=== PATIENT | female | born 1940 | race Caucasian/White ===

== ENCOUNTER 2017-01-09 05:55 | Day surgery (SDC) | payer MEDICARE, OTHER ==
[~2017-01-09 05:55] MED LIST: Dextrose 5%-0.45% NaCl 1,000 ML IV SCH; Sodium Chloride 0.9% 10 ML Syringe FLUSH PRN
[2017-01-09] MEDS ORDERED: Midazolam 1 MG/ML 2 ML SDV ONE (06:15)
[2017-01-09] MEDS ORDERED: fentaNYL 100 MCG/2 ML SDV ONE (06:15)
[2017-01-09] MEDS ORDERED: fentaNYL 100 MCG/2 ML SDV IV ONE ×3 (07:15→12:59)
[2017-01-09] MEDS ORDERED: Midazolam 1 MG/ML 2 ML SDV IV ONE ×10 (07:16→12:59)
[2017-01-09 09:45] VITALS: BP 130/55
--- NOTE | 2017-01-09 12:57 | OR ---
DATE: 01/09/2017 PROCEDURE: Total colonoscopy. INSTRUMENT USED: PCF-160 AL Olympus video colonoscope. PREMEDICATIONS: Fentanyl 100 mcg intravenous, Versed 5.5 mg intravenous. Nasal O2 cannula. The procedure was done under pulse oximetry, BP recording, and laboratory monitor. INDICATION: Screening colonoscopy examination is done for detection of any polypoid lesions and removal, endoscopic hemostasis therapy if needed. DESCRIPTION OF PROCEDURE: Initial rectal exam showed external hemorrhoidal tags. Rigid anoscopy was normal. The colonoscope was passed with ease. Numerous scattered diverticula were noted in the distal left colon along with deformity. The colon was found to be tortuous and redundant and technically a difficult exam due to the presence of adhesions related to previous the surgical procedures. There was significant amount of fecal material that had to be aspirated, some solid in consistency. The scope was passed up to the area of the cecum. Photographs were taken. No bleeding was noted from any of the visualized areas at the commencement of the examination. No vascular ectasia. No large isolated ulcerations seen. No evidence of diffuse inflammatory bowel disease in the form of friability, contact bleeding, or ulcerations. No polyp or tumor mass identified. Probing the proximal sides of folds and flexures, using adequate distention and clearing of the stool material, withdrawal of the scope was made, cecum to rectum time over 6 minutes. No bleeding was noted from any of the visualized areas at the completion of examination. IMPRESSION: 1. Diverticulosis. 2. External hemorrhoids. The patient tolerated the procedure well. [facility] /[id number]
== END 2017-01-09 09:58 | disposition home or self-care (01) ==
LOC: DL.ENDO 05:55
PROVIDERS: ATTEND Internal Medicine Gastroenterology
DX: Z12.11 Encounter for screening for malignant neoplasm of colon (principal); K57.30 Diverticulosis of large intestine without perforation or abscess without bleeding; K64.4 Residual hemorrhoidal skin tags; I10 Essential (primary) hypertension; F41.1 Generalized anxiety disorder; K21.9 Gastro-esophageal reflux disease without esophagitis
CPT/HCPCS: 45378; J2250; J3010; J7042

== ENCOUNTER 2017-06-22 05:18 | Day surgery (SDC) | payer MEDICARE, OTHER ==
[2017-06-22] MEDS ORDERED: Dextrose 5%-0.45% NaCl 1,000 ML IV SCH (06:00)
[2017-06-22] MEDS ORDERED: Sodium Chloride 0.9% 10 ML Syringe FLUSH PRN (06:00)
[2017-06-22] MEDS ORDERED: fentaNYL 100 MCG/2 ML SDV ONE (06:04)
[2017-06-22] MEDS ORDERED: Midazolam 1 MG/ML 2 ML SDV ONE (06:04)
[2017-06-22] MEDS ORDERED: fentaNYL 100 MCG/2 ML SDV IV ONE ×2 (06:25)
[2017-06-22] MEDS ORDERED: Midazolam 1 MG/ML 2 ML SDV IV ONE ×2 (06:26→06:27)
--- NOTE | 2017-06-22 07:21 | OR ---
DATE: 06/22/2017 PROCEDURE: Esophagogastroduodenoscopy and multiple pinch biopsies. INSTRUMENT USED: GIF-H180 Olympus video panendoscope. PREMEDICATIONS: Fentanyl 100 mcg intravenous, Versed 1.5 mg intravenous. Nasal O2 cannula. The procedure was done under pulse oximetry, BP recording, and vp digital marketing social media and crm. INDICATION: The patient with longstanding heartburn,abdominal pain and dyspepsia with recent high dysphagia unexplained, not responsive to medical measures. Barium esophagogram done recently reported abnormal. PROCEDURE IN DETAIL: Esophagogastroduodenoscopy is performed for detection of any active erosive lesions, malignancy also under consideration, H. pylori status to be determined, esophageal dilatations if indicated, endoscopic hemostasis therapy if needed. The scope was passed with ease. Adequate visualization of the esophagus was made proximal to distal areas. No upper esophageal lesions identified. No distal esophageal stricture. No uphill or downhill esophageal varices. No Darlin-Keith tear. No evidence of erosive esophagitis by Ingham criteria. No esophageal polyp or tumor mass identified. Z-line was seen at around 40 cm distal to the oral verge, configuration consistent with grade 1 by Zapp classification. No proximal gastric varices noted. Gastric fundus examination by retroflexion showed no polypoid lesions. Sliding hiatal hernia is noted. No gastric ulcer, malignant mass, or vascular ectasia identified. Duodenal bulb showed no ulcer. Visualized second part of the duodenum was unremarkable. Multiple pinch biopsies were taken from the gastric antrum and proximal body and sent for PyloriTek test for H. pylori; and if negative in an hour, the tissue is to be sent for histopathology. No bleeding was noted from any of the visualized areas at the completion of examination. Photographs were taken of the duodenal bulb, gastric antrum, fundus, and distal esophagus. IMPRESSION: Sliding hiatal hernia. The patient tolerated the procedure well. [facility] /[id number] PRABHAKAR
[2017-06-22 08:46] VITALS: BP 112/48
== END 2017-06-22 08:37 | disposition home or self-care (01) ==
LOC: DL.ENDO 05:18
PROVIDERS: ATTEND Internal Medicine Gastroenterology
DX: K31.819 Angiodysplasia of stomach and duodenum without bleeding (principal); K44.9 Diaphragmatic hernia without obstruction or gangrene; K21.9 Gastro-esophageal reflux disease without esophagitis; I10 Essential (primary) hypertension; E78.5 Hyperlipidemia, unspecified; F41.1 Generalized anxiety disorder; Z88.1 Allergy status to other antibiotic agents; Z88.2 Allergy status to sulfonamides; Z88.8 Allergy status to other drugs, medicaments and biological substances
CPT/HCPCS: 43239; 87077; J7042; 88305; J2250; J3010

== ENCOUNTER 2017-11-08 10:29 | Emergency (ER) | payer MEDICARE, OTHER ==
[2017-11-08 10:44] VITALS: BP 169/69
[2017-11-08] MEDS ORDERED: Bacitracin Oint 1 GM U/D Packet TOP ONE (10:45)
[2017-11-08] MEDS ORDERED: Lidocaine 1% 30 ML SDV INJECT ONE (10:45)
[2017-11-08] MEDS ORDERED: Amoxicillin/Clavulanate K 875-125 MG Tab PO ONE (11:07)
--- NOTE | 2017-11-08 12:33 | EDM.PDOC ---
Scribed by Katie Abdi 11/08/17 1232 for Harshil Lozano MD ED HPI GENERAL MEDICAL PROBLEM - General Chief Complaint: Upper Extremity Injury/Pain Stated Complaint: RT INDEX FINGER, Time Seen by Provider: 11/08/17 10:40 Source of Information: Reports: Patient, RN, RN Notes Reviewed History Limitations: Reports: No Limitations - History of Present Illness INITIAL COMMENTS - FREE TEXT/NARRATIVE: Patient complains of injury to the right index finger sustained by shutting in the house door just prior to arrival. Patient controlled bleeding by applying direct pressure. Denies any other injury. Last tetanus vaccine given 2015. Onset: Today Location: Reports: Upper Extremity, Right Quality: Reports: Ache Severity: Mild Improves with: Reports: None Worsens with: Reports: None Associated Symptoms: Reports: No Other Symptoms Right 2-Index finger Pain Score (Numeric/FACES): 10 - Related Data Allergies Allergy/AdvReac Type Severity Reaction Status Date / Time amlodipine Allergy Abdominal Verified 11/08/17 10:50 Pain aspirin [From Percodan] Allergy Abdominal Verified 11/08/17 10:50 Pain cephalexin Allergy Nausea and Verified 11/08/17 10:50 Vomiting cisapride monohydrate Allergy Nausea and Verified 11/08/17 10:50 [From Propulsid] Vomiting codeine Allergy Abdominal Verified 11/08/17 10:50 Pain cyclobenzaprine HCl Allergy Abdominal Verified 11/08/17 10:50 [From Flexeril] Pain nabumetone [From Relafen] Allergy Nausea and Verified 11/08/17 10:50 Vomiting oxaprozin [From Daypro] Allergy Nausea and Verified 11/08/17 10:50 Vomiting oxycodone HCl [From Percodan] Allergy Abdominal Verified 11/08/17 10:50 Pain oxycodone terephthalate Allergy Abdominal Verified 11/08/17 10:50 [From Percodan] Pain Sulfa (Sulfonamide Allergy Vomiting Verified 11/08/17 10:50 Antibiotics) sulfacetamide Allergy Vomiting Verified 11/08/17 10:50 sulfadiazine Allergy Abdominal Verified 11/08/17 10:50 Pain Home Meds: Home Meds Calcium Carbonate/Vitamin D3 [Calcium 600 + D Tablet] 1 tab PO BID 05/07/15 [ History] Chlorthalidone 1 tab PO DAILY 05/07/15 [History] Gabapentin 900 mg PO TID 05/07/15 [History] Loratadine [Claritin] 10 mg PO DAILY 05/07/15 [History] Omeprazole 1 cap PO BID 05/07/15 [History] Potassium Chloride [Klor-Con 10] 10 meq PO TID 05/07/15 [History] Simvastatin 40 mg PO BEDTIME 05/07/15 [History] carBAMazepine [Carbamazepine] 1 tab PO BEDTIME 05/07/15 [History] Acetaminophen [Tylenol Extra Strength] 1 tab PO TID 01/08/17 [History] Ascorbic Acid [Vitamin C] 1 tab PO ASDIRECTED 06/19/17 [History] Aspirin [Halfprin] 1 tab PO ASDIRECTED 06/19/17 [History] Cranberry Extract [Cranberry] 1 tab PO ASDIRECTED 06/19/17 [History] Oxybutynin Chloride [Ditropan Xl] 1 tab PO ASDIRECTED 06/19/17 [History] Polyvinyl Alcohol/Povidone [Artificial Tears Drops] 1 drop EYEBOTH TID 06/19/17 [History] Past Medical History HEENT History: Reports: Impaired Vision Cardiovascular History: Reports: High Cholesterol, Hypertension Other Cardiovascular History: HYPERLIPIDEMIA Respiratory History: Reports: None Gastrointestinal History: Reports: Diverticulosis, GERD, Irritable Bowel Syndrome, Other (See Below) Other Gastrointestinal History: DIVERTICULOIS OF COLON, adhesions Other Genitourinary History: 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: , Spontaneous Musculoskeletal History: Reports: Back Pain, Chronic, Osteoarthritis, Other ( See Below) Other Musculoskeletal History: OA OF L KNEE, degenerative joint disease, spinal stenosis of lumbar region Neurological History: Reports: None Other Neuro History: TRIGEMINAL NEURALGIA Psychiatric History: Reports: None, Anxiety Endocrine/Metabolic History: Reports: None Hematologic History: Reports: None Immunologic History: Reports: None Oncologic (Cancer) History: Reports: Renal Other Oncologic History: KIDNEY CA Dermatologic History: Reports: None - Infectious Disease History Infectious Disease History: Reports: Chicken Pox, Measles, Mumps, Pertussis ( Whooping Cough) - Past Surgical History HEENT Surgical History: Reports: Cataract Surgery Cardiovascular Surgical History: Reports: None GI Surgical History: Reports: Cholecystectomy, Colonoscopy Female Surgical History: Reports: Hysterectomy, Nephrectomy, Salpingo- Oophorectomy Other Female Surgeries/Procedures: left kidney removed 1994 Musculoskeletal Surgical History: Reports: Other (See Below) Other Musculoskeletal Surgeries/Procedures:: partial left knee replacement; s/p low back surgery 06/23/16 Social & Family History - Family History Family Medical History: Noncontributory - Tobacco Use Smoking Status *Q: Former Smoker Used Tobacco, but Quit: Yes Month/Year Tobacco Last Used: 10/29/1963 Second Hand Smoke Exposure: No - Caffeine Use Caffeine Use: Reports: Coffee, Soda, Tea Other Caffeine Use: 3 cups coffee daily - Recreational Drug Use Recreational Drug Use: No Review of Systems - Review of Systems Review Of Systems: ROS reveals no pertinent complaints other than HPI. ED EXAM, GENERAL - Physical Exam Exam: See Below Exam Limited By: No Limitations General Appearance: Alert, WD/WN, No Apparent Distress Head: Atraumatic, Normocephalic Respiratory/Chest: No Respiratory Distress Extremities: Other (chronic severe arthritic changes to all joints of bilateral hands. Right index finger laceration with a 1.25cm irregular gaping laceration/ softtissue avulsion to depth of subcutaneous tissue with no active bleeding. No foriegn body. Full range of motion. ) Neurological: Alert, No Motor/Sensory Deficits ED TRAUMA EXTREMITY PROCEDURES - Laceration/Wound Repair Right Finger Lac/Wound Length In cm: 1.3 (Rt index finger) Appearance: Subcutaneous, Irregular, Clean Distal NVT: Neuro & Vascular Intact, No Tendon Injury Anesthetic Type: Digital Local Anesthesia - Lidocaine (Xylocaine): 1% Plain Local Anesthetic Volume: 4cc Skin Prep: Chlorhexidine (Hibiciens), Saline Saline Irrigation (cc's): 500 Exploration/Debridement/Repair: Wound Explored, In a Bloodless Field, Explored to Base, Minimal Debridement, Minimally Undermined Closed With: Sutures Suture Size: 3-0 # of Sutures: 4 Suture Type: Nylon, Interrupted Drain Placement: No Sterile Dressing Applied: Nurse Tetanus Status Addressed: Yes Complications: No - Splinting Right 2nd Digit Splint Site: Rt index finger Pre-Procedure NV Status: Normal Post-Procedure NV Status: Normal Splint Material: Aluminum-Foam Splint Design: Sugar Tong Applied & Form Fitted By: Nurse Provider Post-Splint Application NV Check: NV Status Normal, Good Position Complications: No Course - Vital Signs Last Recorded V/S: Last Vital Signs Temp 36.9 C 11/08/17 10:42 Pulse 82 11/08/17 10:42 Resp 16 11/08/17 10:42 BP 169/69 H 11/08/17 10:42 Pulse Ox 98 11/08/17 10:42 - Orders/Labs/Meds Orders: Active Orders 24 hr Category Date Time Status Fingers Second Digit Rt F6 [CR] Urgent Exams 11/08/17 10:38 Taken DME for Discharge [COMM] Routine Oth 11/08/17 11:08 Ordered Meds: Medications Discontinued Medications Generic Name Dose Route Start Last Admin Trade Name Boom PRN Reason Stop Dose Admin Amoxicillin/Clavulanate Potassium 1 tab 11/08/17 11:07 11/08/17 11:45 Augmentin 875 Mg/125 Mg PO 11/08/17 11:08 1 tab ONETIME ONE Administration Bacitracin 1 dose 11/08/17 10:45 11/08/17 11:03 Bacitracin Oint 1 Gm TOP 11/08/17 10:46 1 dose ONETIME ONE Administration Lidocaine HCl 30 ml 11/08/17 10:45 11/08/17 11:03 Xylocaine-Mpf 1% INJECT 11/08/17 10:46 30 ml ONETIME ONE Administration - Radiology Interpretation Free Text/Narrative:: Right index finger: No fracture per radiology report. However, the right second proximal end of the middle phalanx has a clearly delineated transverse fracture, nondisplaced seen on the PA view. Departure - Departure Time of Disposition: 11:34 Disposition: Home, Self-Care 01 Condition: Good Clinical Impression: Laceration of right index finger Qualifiers: Encounter type: initial encounter Damage to nail status: without damage Foreign body presence: without foreign body Qualified Code(s): S61.210A - Laceration without foreign body of right index finger without damage to nail, initial encounter Crushing injury of right index finger Qualifiers: Encounter type: initial encounter Qualified Code(s): S67.190A - Crushing injury of right index finger, initial encounter Fracture of phalanx of right index finger Qualifiers: Encounter type: initial encounter Fracture type: closed Phalanx: middle Fracture alignment: nondisplaced Qualified Code(s): S62.650A - Nondisplaced fracture of middle phalanx of right index finger, initial encounter for closed fracture - Discharge Information Instructions: Finger Fracture, [id number], Crush Injury of the Hand, Easy-to- Read, Laceration Care, Adult, [id number] Referrals: Doris Rodriguez MD [Primary Care Provider] - Forms: ED Department Discharge Additional Instructions: RX:Augmentin 875mg. Call your primary doctor tomorrow to schedule a recheck for finger fracture. Have suture removal in 7 to 10 days. Wear the splint until your doctor instructs you to remove it. - My Orders Last 24 Hours: My Active Orders 11/08/17 10:38 Fingers Second Digit Rt F6 [CR] Urgent 11/08/17 11:08 DME for Discharge [COMM] Routine - Assessment/Plan Last 24 Hours: My Active Orders 11/08/17 10:38 Fingers Second Digit Rt F6 [CR] Urgent 11/08/17 11:08 DME for Discharge [COMM] Routine I have read and agree with the documentation that has been completed regarding this visit. By signing this record, I attest that the documentation was completed in my physical presence and is an accurate record of the encounter.
== END 2017-11-08 11:55 | disposition home or self-care (01) ==
LOC: DL.ED 10:29
DX: S67.190A Crushing injury of right index finger, initial encounter (principal); S62.650A Nondisplaced fracture of middle phalanx of right index finger, initial encounter for closed fracture; S61.210A Laceration without foreign body of right index finger without damage to nail, initial encounter; E78.00 Pure hypercholesterolemia, unspecified; I10 Essential (primary) hypertension; Z88.8 Allergy status to other drugs, medicaments and biological substances; Z88.6 Allergy status to analgesic agent; Z88.1 Allergy status to other antibiotic agents; Z88.5 Allergy status to narcotic agent; Z88.2 Allergy status to sulfonamides; Z79.899 Other long term (current) drug therapy; Z87.891 Personal history of nicotine dependence; W23.1XXA Caught, crushed, jammed, or pinched between stationary objects, initial encounter
CPT/HCPCS: 12002; 73140; 99282; A9270

== ENCOUNTER 2019-08-12 07:26 | Emergency (ER) | payer MEDICARE, OTHER ==
[2019-08-12] MEDS ORDERED: Etomidate 2 MG/ML 20 ML SDV IVPUSH ONE (07:27)
[2019-08-12] MEDS ORDERED: fentaNYL 100 MCG/2 ML SDV IVPUSH ONE ×2 (07:30→07:48)
[2019-08-12] MEDS ORDERED: Ondansetron 4 MG/2 ML SDV IV ONE (07:30)
[2019-08-12 07:34] VITALS: BP 168/79; PULSE 85
--- NOTE | 2019-08-12 07:43 | EDM.PDOC ---
"<Domo Ashley - Last Filed: 08/12/19 09:41> ED HPI GENERAL MEDICAL PROBLEM - General Chief Complaint: Upper Extremity Injury/Pain Stated Complaint: AMBULANCE Time Seen by Provider: 08/12/19 07:38 Source of Information: Reports: Patient, EMS, RN, RN Notes Reviewed History Limitations: Reports: No Limitations - History of Present Illness INITIAL COMMENTS - FREE TEXT/NARRATIVE: 78 y.o F via ambulance presents with R shoulder pain that started this AM. Patient reports that she was walking when her slipper got caught up in a floor rug, causing her to fall. Patient reports falling and hitting her R side on the couch before hitting the floor. Patient denies any dizziness prior to fall, denies LOC, and denies hitting her head. CMS intact to the R arm, patient reports 10/10 pain to the R shoulder. Onset: Today Duration: Constant Location: Reports: Upper Extremity, Right Quality: Reports: Ache, Throbbing Severity: Moderate Improves with: Reports: None Worsens with: Reports: None Associated Symptoms: Denies: Confusion, Chest Pain, Cough, Fever/Chills, Headaches, Loss of Appetite, Nausea/Vomiting, Shortness of Breath, Syncope Right Shoulder Pain Score (Numeric/FACES): 10 - Related Data Allergies Allergy/AdvReac Type Severity Reaction Status Date / Time amlodipine Allergy Abdominal Verified 11/08/17 10:50 Pain aspirin [From Percodan] Allergy Abdominal Verified 11/08/17 10:50 Pain cephalexin Allergy Nausea and Verified 11/08/17 10:50 Vomiting cisapride monohydrate Allergy Nausea and Verified 11/08/17 10:50 [From Propulsid] Vomiting codeine Allergy Abdominal Verified 11/08/17 10:50 Pain cyclobenzaprine HCl Allergy Abdominal Verified 11/08/17 10:50 [From Flexeril] Pain nabumetone [From Relafen] Allergy Nausea and Verified 11/08/17 10:50 Vomiting oxaprozin [From Daypro] Allergy Nausea and Verified 11/08/17 10:50 Vomiting oxycodone HCl [From Percodan] Allergy Abdominal Verified 11/08/17 10:50 Pain oxycodone terephthalate Allergy Abdominal Verified 11/08/17 10:50 [From Percodan] Pain Sulfa (Sulfonamide Allergy Vomiting Verified 11/08/17 10:50 Antibiotics) sulfacetamide Allergy Vomiting Verified 11/08/17 10:50 sulfadiazine Allergy Abdominal Verified 11/08/17 10:50 Pain Home Meds: Home Meds Calcium Carbonate/Vitamin D3 [Calcium 600 + D Tablet] 1 tab PO BID 05/07/15 [ History] Chlorthalidone 25 mg PO DAILY 05/07/15 [History] Gabapentin 900 mg PO TID 05/07/15 [History] Loratadine [Claritin] 10 mg PO DAILY 05/07/15 [History] Omeprazole 20 mg PO BID 05/07/15 [History] Potassium Chloride [Klor-Con 10] 10 meq PO ASDIRECTED 05/07/15 [History] Simvastatin 20 mg PO BEDTIME 05/07/15 [History] carBAMazepine [Carbamazepine] 100 mg PO BEDTIME 05/07/15 [History] Acetaminophen [Tylenol Extra Strength] 500 mg PO Q6HR PRN 01/08/17 [History] Ascorbic Acid [Vitamin C] 500 mg PO DAILY 06/19/17 [History] Aspirin [Halfprin] 81 mg PO DAILY 06/19/17 [History] Cranberry Fruit Extract [Cranberry] 1 tab PO ASDIRECTED 06/19/17 [History] Oxybutynin Chloride [Ditropan Xl] 10 mg PO DAILY 06/19/17 [History] Polyvinyl Alcohol/Povidone [Artificial Tears Drops] 1 drop EYEBOTH TID 06/19/17 [History] B-Complex with Vitamin C [Super B Complex-Vitamin C] 1 tab PO DAILY 08/12/19 [ History] LORazepam [Ativan] 0.5 mg PO BEDTIME 08/12/19 [History] Losartan [Cozaar] 25 mg PO DAILY 08/12/19 [History] Magnesium Oxide 200 mg PO DAILY 08/12/19 [History] Sulindac [Clinoril] 150 mg PO BID 08/12/19 [History] Past Medical History HEENT History: Reports: Impaired Vision Cardiovascular History: Reports: High Cholesterol, Hypertension Other Cardiovascular History: HYPERLIPIDEMIA Respiratory History: Reports: None Gastrointestinal History: Reports: Diverticulosis, GERD, Irritable Bowel Syndrome, Other (See Below) Other Gastrointestinal History: DIVERTICULOIS OF COLON, adhesions Other Genitourinary History: 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: , Spontaneous Musculoskeletal History: Reports: Back Pain, Chronic, Osteoarthritis, Other ( See Below) Other Musculoskeletal History: OA OF L KNEE, degenerative joint disease, spinal stenosis of lumbar region Neurological History: Reports: None Other Neuro History: TRIGEMINAL NEURALGIA Psychiatric History: Reports: None, Anxiety Endocrine/Metabolic History: Reports: None Hematologic History: Reports: None Immunologic History: Reports: None Oncologic (Cancer) History: Reports: Renal Other Oncologic History: KIDNEY CA Dermatologic History: Reports: None - Infectious Disease History Infectious Disease History: Reports: Chicken Pox, Measles, Mumps, Pertussis ( Whooping Cough) - Past Surgical History HEENT Surgical History: Reports: Cataract Surgery Cardiovascular Surgical History: Reports: None GI Surgical History: Reports: Cholecystectomy, Colonoscopy Female Surgical History: Reports: Hysterectomy, Nephrectomy, Salpingo- Oophorectomy Other Female Surgeries/Procedures: left kidney removed 1994 Musculoskeletal Surgical History: Reports: Other (See Below) Other Musculoskeletal Surgeries/Procedures:: partial left knee replacement; s/p low back surgery 06/23/16 Social & Family History - Family History Family Medical History: Noncontributory - Caffeine Use Caffeine Use: Reports: Coffee, Soda, Tea Other Caffeine Use: 3 cups coffee daily Review of Systems - Review of Systems Review Of Systems: See Below Constitutional: Reports: No Symptoms Eyes: Reports: No Symptoms Ears: Reports: No Symptoms Nose: Reports: No Symptoms Mouth/Throat: Reports: No Symptoms Respiratory: Reports: No Symptoms Cardiovascular: Reports: No Symptoms GI/Abdominal: Reports: No Symptoms Genitourinary: Reports: No Symptoms Musculoskeletal: Reports: Arm Pain (right shoulder/elbow), Joint Pain (right shoulder/elbow), Muscle Pain Skin: Reports: No Symptoms Neurological: Reports: No Symptoms Psychiatric: Reports: No Symptoms ED EXAM, GENERAL - Physical Exam Exam: See Below Exam Limited By: No Limitations General Appearance: Alert, Moderate Distress Head: Atraumatic, Normocephalic Neck: Normal Inspection, Supple, Non-Tender, Full Range of Motion Respiratory/Chest: No Respiratory Distress, Lungs Clear, Normal Breath Sounds, No Accessory Muscle Use, Chest Non-Tender Cardiovascular: Normal Peripheral Pulses, Regular Rate, Rhythm, No Edema, No Gallop, No JVD, No Murmur, No Rub Peripheral Pulses: 2+: Brachial (R), Radial (R) GI/Abdominal: Normal Bowel Sounds, Soft, Non-Tender, No Organomegaly, No Distention, No Abnormal Bruit, No Mass (Female) Exam: Deferred Rectal (Female) Exam: Deferred Extremities: Normal Capillary Refill, Arm Pain (right shoulder/elbow), Limited Range of Motion (right shoulder/elbow) Neurological: Alert, Oriented, CN II-XII Intact, Normal Cognition, Normal Gait, Normal Reflexes, No Motor/Sensory Deficits Psychiatric: Anxious, Tearful Skin Exam: Warm, Dry, Intact, Normal Color, No Rash Lymphatic: No Adenopathy Course - Vital Signs Last Recorded V/S: Last Vital Signs Temp 97.4 F 08/12/19 07:29 Pulse 85 08/12/19 07:29 Resp 20 08/12/19 07:29 BP 168/79 H 08/12/19 07:29 Pulse Ox 96 08/12/19 07:29 - Orders/Labs/Meds Orders: Active Orders 24 hr Category Date Time Status Elbow 2V Rt [CR] Stat Exams 08/12/19 07:31 Ordered Meds: Medications Discontinued Medications Generic Name Dose Route Start Last Admin Trade Name Boom PRN Reason Stop Dose Admin Bupivacaine HCl 20 ml 08/12/19 08:15 Sensorcaine-Mpf 0.25% INJECT 08/12/19 08:16 ONETIME ONE Fentanyl 100 mcg 08/12/19 07:30 08/12/19 07:40 Sublimaze IVPUSH 08/12/19 07:31 100 mcg ONETIME ONE Administration Fentanyl 50 mcg 08/12/19 07:48 08/12/19 08:04 Sublimaze IVPUSH 08/12/19 07:49 50 mcg ONETIME ONE Administration Lidocaine HCl 30 ml 08/12/19 08:16 Xylocaine-Mpf 1% INJECT 08/12/19 08:17 ONETIME ONE Midazolam HCl 2 mg 08/12/19 08:14 Versed 1 Mg/Ml IVPUSH 08/12/19 08:15 ONETIME ONE Ondansetron HCl 4 mg 08/12/19 07:30 08/12/19 07:40 Zofran IV 08/12/19 07:31 4 mg ONETIME ONE Administration Departure - Departure Time of Disposition: 09:42 Disposition: Home, Self-Care 01 Clinical Impression: Dislocation of right shoulder joint Qualifiers: Encounter type: initial encounter Qualified Code(s): S43.004A - Unspecified dislocation of right shoulder joint, initial encounter Closed fracture of right shoulder Qualifiers: Encounter type: initial encounter Qualified Code(s): S42.91XA - Fracture of right shoulder girdle, part unspecified, initial encounter for closed fracture Fall as cause of accidental injury at home as place of occurrence Qualifiers: Encounter type: initial encounter Qualified Code(s): W19.XXXA - Unspecified fall, initial encounter - Discharge Information Instructions: Shoulder Dislocation, Scapular Fracture Forms: ED Department Discharge Additional Instructions: Rx: [place] (Hydrocodone) 5mg/325mg Use a stool softener to prevent constipation while taking the pain medication. Rx: Zofran 4mg Do not remove shoulder immobilizer until seen by orthopedic surgeon next week. Call [phone] today to schedule an orthopedic appointment with Dr. Moreno for next week. Sepsis Event Note - Evaluation Sepsis Screening Result: No Definite Risk - Focused Exam Vital Signs: Vital Signs Temp Pulse Resp BP Pulse Ox 08/12/19 07:29 97.4 F 85 20 168/79 H 96 Date Exam was Performed: 08/12/19 Time Exam was Performed: 09:41 - My Orders Last 24 Hours: My Active Orders 08/12/19 07:31 Elbow 2V Rt [CR] Stat - Assessment/Plan Last 24 Hours: My Active Orders 08/12/19 07:31 Elbow 2V Rt [CR] Stat <Xenia Lozano - Last Filed: 08/12/19 09:43> ED TRAUMA EXTREMITY PROCEDURES - Joint Reduction Site: Shoulder (R) Sedation: Conscious Sedation Pre-Procedure NV Status: Normal Post-Procedure NV Status: Normal Technique: Traction/Counter Traction Number of Attempts: 1 Post-Reduction Imaging: Completely Reduced, Fracture Seen Joint Reduction Complications: No - Splinting Right Upper Extremity Splint Site: Rt shoulder Pre-Procedure NV Status: Normal Post-Procedure NV Status: Normal Splint Material: Velcro Splint Design: Other (Shoulder immobilizer) Applied & Form Fitted By: Nurse Provider Post-Splint Application NV Check: NV Status Normal, Good Position Complications: No - Additional/Other Procedure(s) Other (Free Text) Procedure(s): See PAINT LINE OPERATOR doc. for sedation note. Course - Radiology Interpretation Free Text/Narrative:: [facility] Final Radiology Report Call: [phone] assistance Online chat: [email or web address] - [employer] Name: SAPPHIRE CUADRA Age: 78Years F Date: 08/12/2019 SSN: -- : 1940 Study: XR SHOULDER COMPLETE MIN OF 2 VIEWS RIGHT Requesting Physician: XENIA LOZANO Images: 3 Addl Studies: Provided Clinical History: Contrast: Contrast Medium: Contrast Amount: Contrast Method: Page 1 of 2 PROCEDURE INFORMATION: Exam: XR Right Shoulder Exam date and time: 08/12/2019 7:56 AM Age: 78 years old Clinical indication: Injury or trauma; Fall; Initial encounter; Blunt trauma ( contusions or hematomas; Shoulder; Right TECHNIQUE: Imaging protocol: XR Right shoulder. Views: 2 or more views. COMPARISON: No relevant prior studies available. FINDINGS: Bones/joints: There is anterior inferior dislocation of the glenohumeral joint. The greater tuberosity is fracture from the humeral head. It is a comminuted fragment measuring up to 4.1 x 3.3 cm, completely displaced, lying lateral to the humeral neck and proximal shaft. There may also be a minimally displaced fracture through the mid aspect of the glenoid. The acromioclavicular joint is normally aligned and demonstrates mild arthrosis. Mild productive change is present along the undersurface of the acromion. Degenerative changes involve the spine. Soft tissues: There is associated soft tissue swelling. IMPRESSION: 1. Anterior inferior glenohumeral dislocation. 2. Complete comminuted and displaced fracture of the greater tuberosity with possible minimally displaced fracture of the glenoid. 3. Degenerative changes as described. Thank you for allowing us to participate in the care of your patient. SAPPHIRE CUADRA | Final Radiology Report CONFIDENTIALITY STATEMENT This report is intended only for use by the referring physician, and only in accordance with law. If you received this in error, call [phone]. Page 2 of 2 Dictated and Authenticated by: Duke Menard MD 08/12/2019 8:42 AM Central Time ([place] & [place]) [facility] Final Radiology Report Call: [phone] assistance Online chat: [email or web address] [employer] Name: SAPPHIRE CUADRA Age: 78Years F Date: 08/12/2019 SSN: -- : 1940 Study: XR SHOULDER COMPLETE MIN OF 2 VIEWS RIGHT Requesting Physician: XENIA LOZANO Images: 2 Addl Studies: Provided Clinical History: Contrast: Contrast Medium: Contrast Amount: Contrast Method: CONFIDENTIALITY STATEMENT This report is intended only for use by the referring physician, and only in accordance with law. If you received this in error, call [phone]. Page 1 of 1 PROCEDURE INFORMATION: Exam: XR Right Shoulder Exam date and time: 08/12/2019 8:50 AM Age: 78 years old Clinical indication: Other: S/P reduction TECHNIQUE: Imaging protocol: XR Right shoulder. Views: 2 or more views. COMPARISON: CR Shoulder Comp Rt 08/12/2019 7:56 AM FINDINGS: Bones/joints: There has been interval relocation of the previous glenohumeral dislocation. Previous fracture of the greater tuberosity has also been largely reduced, now with up to 3 mm displacement. Again, question fracture of the mid glenoid anteriorly. There are similar degenerative changes. Soft tissues: There is associated soft tissue swelling. IMPRESSION: 1. Interval relocation of previous glenohumeral dislocation since earlier the same day. 2. Previous greater tuberosity fracture largely reduced, now with up to 3 mm displacement. 3. Again, question glenoid fracture. Thank you for allowing us to participate in the care of your patient. Dictated and Authenticated by: Duke Menard MD 08/12/2019 9:01 AM Central Time ([place] & [place]) - Re-Assessments/Exams Free Text/Narrative Re-Assessment/Exam: 08/12/19 08:18 I consulted orthopedic surgeon, Dr. Lupillo Moreno via [employer] [facility]. Dr. Moreno advises to reduce the Rt shoulder dislocation w/fracture and place in a shoulder immobilizer, and have the pt f/u in ortho. clinic in 1 week. 08/12/19 09:39 I personally performed or re-performed the physical examination and medical decision making. I have verified all student documentation or findings, including history, physical exam and/or medical decision making. Departure - Departure Condition: Fair - Discharge Information *PRESCRIPTION DRUG MONITORING PROGRAM REVIEWED*: Not Applicable *COPY OF PRESCRIPTION DRUG MONITORING REPORT IN PATIENT STEPHANIE: Not Applicable Sepsis Event Note - Focused Exam Date Exam was Performed: 08/12/19 Time Exam was Performed: 09:43"
[2019-08-12] MEDS ORDERED: Midazolam 1 MG/ML 2 ML SDV IVPUSH ONE (08:14)
[2019-08-12] MEDS ORDERED: Bupivacaine 0.25% 10 ML SDV INJECT ONE (08:15)
[2019-08-12] MEDS ORDERED: Lidocaine 1% 30 ML SDV INJECT ONE (08:16)
== END 2019-08-12 10:00 | disposition home or self-care (01) ==
LOC: DL.ED 07:26
DX: S43.014A Anterior dislocation of right humerus, initial encounter (principal); S43.034A Inferior dislocation of right humerus, initial encounter; E78.5 Hyperlipidemia, unspecified; I10 Essential (primary) hypertension; F41.9 Anxiety disorder, unspecified; K21.9 Gastro-esophageal reflux disease without esophagitis; Z88.2 Allergy status to sulfonamides; Z88.8 Allergy status to other drugs, medicaments and biological substances; Z79.82 Long term (current) use of aspirin; Z88.5 Allergy status to narcotic agent; Z79.899 Other long term (current) drug therapy; W01.198A Fall on same level from slipping, tripping and stumbling with subsequent striking against other object, initial encounter
CPT/HCPCS: 01620; 23650; 73030; 96374; 96375; 99152; 99284; J2001; J2250; J2405; J3010; J3490

== ENCOUNTER 2024-01-25 05:37 | Day surgery (SDC) | payer MEDICARE, OTHER ==
[2024-01-25] MEDS ORDERED: fentaNYL 100 MCG/2 ML SDV IV ONE (05:38)
[2024-01-25] MEDS ORDERED: Midazolam 1 MG/ML 2 ML SDV IV ONE (05:38)
[2024-01-25] MEDS ORDERED: Midazolam 1 MG/ML 2 ML SDV ONE (06:11)
[2024-01-25] MEDS ORDERED: fentaNYL 100 MCG/2 ML SDV ONE (06:11)
[2024-01-25] MEDS: Dextrose 5%-0.45% NaCl 1,000 ML IV SCH (06:19)
[2024-01-25] MEDS: fentaNYL 100 MCG/2 ML SDV IV ONE ×2 (06:35→06:36)
[2024-01-25] MEDS: Midazolam 1 MG/ML 2 ML SDV IV ONE ×2 (06:36→06:39)
[2024-01-25 09:55] VITALS: BP 167/73; PULSE 89
== END 2024-01-25 08:22 | disposition home or self-care (01) ==
LOC: DL.ENDO 05:37
PROVIDERS: ATTEND Internal Medicine Gastroenterology
DX: K29.50 Unspecified chronic gastritis without bleeding (principal); K21.9 Gastro-esophageal reflux disease without esophagitis; I10 Essential (primary) hypertension; E78.5 Hyperlipidemia, unspecified; F41.1 Generalized anxiety disorder; R63.4 Abnormal weight loss; Z68.27 Body mass index [BMI] 27.0-27.9, adult
CPT/HCPCS: 43239; 87077; 88305; 88342; J2250; J3010; J7799

== ENCOUNTER 2024-10-25 07:19 | Emergency (ER) | payer MEDICARE, OTHER ==
[2024-10-25] MEDS: Lidocaine 1% with EPINEPHrine 1:100,000 20 ML MDV INJECT ONE (07:37)
[2024-10-25 08:15] VITALS: BP 144/90; PULSE 74
== END 2024-10-25 08:18 | disposition home or self-care (01) ==
LOC: DL.ED 07:19
DX: S01.81XA Laceration without foreign body of other part of head, initial encounter (principal); I10 Essential (primary) hypertension; E78.00 Pure hypercholesterolemia, unspecified; Z88.6 Allergy status to analgesic agent; Z88.8 Allergy status to other drugs, medicaments and biological substances; Z88.5 Allergy status to narcotic agent; Z88.1 Allergy status to other antibiotic agents; Z88.2 Allergy status to sulfonamides; W26.8XXA Contact with other sharp object(s), not elsewhere classified, initial encounter; Y93.89 Activity, other specified
CPT/HCPCS: 12013; 99282; 99283; J2004